=== PATIENT | male | born 1995 | race Caucasian/White ===

== ENCOUNTER 2021-02-17 09:10 | Emergency (ER) | payer BC ==
[~2021-02-17] VITALS: Ht 188 cm; Wt 125.6 kg
[2021-02-17 09:12] VITALS: BP 130/79
--- NOTE | 2021-02-17 09:15 | NUR ---
Patient wheelchair assisted by father to bed 11.
--- NOTE | 2021-02-17 09:25 | NUR ---
25 y/o M BIB father via wheelchair c/o L ankle and foot pain s/p tripping while walking down flight of stairs. Pt states 10/02, squeezing/constant, non-radiating pain. Swelling noted to L ankle and foot. Denies LOC, meds prior to arrival. Bed locked in lowest position, side rails x 1, call light in reach. PMH/Sx/Meds: Seizures NKA
--- NOTE | 2021-02-17 09:34 | NUR ---
Dr. Vilchis is evaluating pt at bedside
--- NOTE | 2021-02-17 10:45 | NUR ---
PT'S LEFT ANKLE WRAPPED WITH 3" CIARAN WRAP, CMS WNL BEFORE AND AFTER. PT GIVEN CRUTCHES THAT WERE ADJUSTED TO PT'S SIZE AND HEIGHT. PT GIVEN ONE ON ONE INSTRUCTION ON HOW TO USE CRUTCHES AND SHOWED PROPER DEMENSTRATION ON HOW TO USE THEM. PT HAD NO FURTHER QUESTIONS.
[2021-02-17] MEDS ORDERED: IBUP-2213 PO (10:53)
[2021-02-17 11:12] VITALS: BP 122/72
--- NOTE | 2021-02-17 11:15 | NUR ---
Dr. Vilchis is reevaluating patient at bedside
--- NOTE | 2021-02-17 11:19 | NUR ---
Patient discharged with v/s stable. Written and verbal after care instructions given and explained for ankle sprain. Patient alert, oriented and verbalized understanding of instructions. Ambulatory by crutches. All questions addressed prior to discharge. ID band removed. Patient advised to follow up with PMD. Rx of Ibuprofen given. Patient educated on indication of medication including possible reaction and side effects. Opportunity to ask questions provided and answered.
== END 2021-02-17 11:19 | disposition home or self-care (01) ==
LOC: MED 09:18
DX: S93.402A Sprain of unspecified ligament of left ankle, initial encounter (principal); W17.89XA Other fall from one level to another, initial encounter; Y93.89 Activity, other specified; Y92.89 Other specified places as the place of occurrence of the external cause; Y99.8 Other external cause status
CPT/HCPCS: 73590; 73610; 73630; 99284; Q0092